=== PATIENT | male | born 2000 | race Caucasian/White ===

== ENCOUNTER 2022-08-30 18:12 | Inpatient (IN) ==
[2022-08-30 19:39] LABS: ABS Basophils 0.1 10^3/ul (0-0.2); ABS Eosinophils 0.5 10^3/ul (0-0.6); ABS Lymphocytes 1.6 10^3/ul (1.0-4.8); ABS Monocytes 0.7 10^3/ul (0-0.8); ABS Neutrophils 5.1 10^3/ul (1.5-7.7); Eosinophil % 5.7 %; Hematocrit 47 % (42-52); Hemoglobin 15.9 g/dL (14.0-18.0); Lymphocyte % 19.8 %; Mean Corpuscular HGB Conc 34 g/dL (31-36); Mean Corpuscular Hemoglobin 31 pg (27-31); Mean Corpuscular Volume 90 fL (80-94); Mean Platelet Volume 6.7 fL (7.4-10.4); Platelet Count 320 10^3/uL (150-450); Red Blood Count 5.18 10^6 /uL (4.18-5.48); Red Cell Distribution Width 13 % (10-15); White Blood Count 7.9 10^3/uL (3.5-10.8)
[2022-08-30 20:06] LABS: Urine Benzodiazepine Screen None Detected (None Detect); Urine Cannabinoids Screen None Detected (None Detect); Urine Opiates Screen None Detected (None Detect)
[2022-08-30 20:41] LABS: ALT 14 U/L (7-52); AST 21 U/L (13-39); Acetaminophen < 15 mcg/mL; Albumin 4.7 g/dL (3.2-5.2); Albumin/Globulin Ratio 1.8 (1-3); Alcohol, S < 13 mg/dL (<13); Alkaline Phosphatase 95 U/L (35-149); Anion Gap 5 mmol/L (2-11); Blood Urea Nitrogen 15 mg/dL (6-24); CO2 Carbon Dioxide 30 mmol/L (22-32); Calcium 9.4 mg/dL (8.6-10.3); Chloride 103 mmol/L (101-111); Globulin 2.6 g/dL (2-4); Glucose 87 mg/dL (70-100); Potassium 3.9 mmol/L (3.5-5.0); Salicylate < 2.50 mg/dL (<30); Sodium 138 mmol/L (135-145); Total Protein 7.3 g/dL (6.4-8.9); eGFR CKD-EPI 107.2 (>60)
[2022-08-31] MEDS ORDERED: Al Hydrox/Mg Hydrox/Simet LIQ 30 ML UDC PO PRN (00:05)
[2022-08-31 08:04] LABS: HDL Cholesterol 43.7 mg/dL
[2022-08-31] MEDS: Vitamin THERAPEUTIC TAB PO SCH (09:07)
[2022-08-31] MEDS: Nicotine GUM 2MG FRUIT FLAVOR PO PRN ×2 (18:13→21:08)
[2022-09-01] MEDS: Nicotine PATCH 14 MG/24 HR PATCH TRANSDERM SCH (09:08)
[2022-09-01] MEDS: Vitamin THERAPEUTIC TAB PO SCH (09:08)
[2022-09-01] MEDS: Nicotine GUM 2MG FRUIT FLAVOR PO PRN ×2 (17:27→21:11)
[2022-09-02 07:54] VITALS: BP 130/71
[2022-09-02] MEDS: Nicotine GUM 2MG FRUIT FLAVOR PO PRN (08:49)
[2022-09-02] MEDS: Nicotine PATCH 14 MG/24 HR PATCH TRANSDERM SCH (08:50)
[2022-09-02] MEDS: Vitamin THERAPEUTIC TAB PO SCH (08:50)
[2022-09-02] MEDS ORDERED: Venlafaxine XR 75 mg PO SCH (10:00)
[2022-09-02] MEDS ORDERED: Albuterol HFA INHALER 8 gm MDI INH PRN (12:15)
== END 2022-09-02 13:11 | disposition home or self-care (01) | DRG 756 ==
LOC: ED 18:12 → EDHOLD 23:13 → BSU 08-31 00:14
PROVIDERS: ADMIT Psychiatry & Neurology Psychiatry; ATTEND Psychiatry & Neurology Psychiatry